=== PATIENT | male | born 1960 | race Caucasian/White ===

== ENCOUNTER 2023-03-05 11:58 | Inpatient (IN) | payer MEDICAID ==
[~2023-03-05] VITALS: Ht 185.4 cm; Wt 92.5 kg
[2023-03-05 13:31] LABS: Basophils # (auto) 0 10 ^3/uL (0-0.2); Basophils % (auto) 0.9 % (0.0-2.0); Eosinophils # (auto) 0.1 10 ^3/uL (0-0.8); Eosinophils % (auto) 3.6 % (0.0-7.0); Hematocrit 42.9 % (41.0-53.0); Hemoglobin 14.7 g/dL (13.5-17.5); Lymphocytes # (auto) 1.2 10 ^3/uL (0.4-5.4); Lymphocytes % (auto) 30.6 % (10.0-50.0); Mean Corpuscular Hgb Conc. 34.3 g/dL (32.0-36.0); Mean Corpuscular Volume 96.1 fL (80.0-100.0); Monocytes # (auto) 0.4 10 ^3/uL (0-1.3); Monocytes % (auto) 9.6 % (0.0-12.0); Neutrophils # (auto) 2.2 10 ^3/uL (1.6-8.6); Neutrophils % (auto) 55.3 % (37.0-80.0); Nucleated Red Blood Cells % 0.2 %; Red Blood Cells 4.47 10^6/uL (4.5-5.90); Red Cell Distribution Width 13.3 % (11.8-14.3); White Blood Cell 3.9 10^3/uL (4.4-10.8)
[2023-03-05 13:39] LABS: Alanine Aminotransferase 21 U/L (7-40); Albumin 4.2 g/dL (3.2-4.8); Alkaline Phosphatase 93 U/L (46-116); Anion Gap 7 (5-15); Aspartate Aminotransferase 20 U/L (13-40); BUN/Creatinine Ratio 15.9 (10.0-20.0); Bilirubin, Total 1.7 mg/dL (0.2-1.0); Blood Urea Nitrogen 14 mg/dL (9-23); Calcium 8.9 mg/dL (8.7-10.4); Carbon Dioxide 23 mmol/L (20-30); Chloride 107 mmol/L (98-107); Glucose 99 mg/dL (74-106); Lipase 39 U/L (12-53); Magnesium 2.1 mg/dL (1.6-2.6); Potassium 4.3 mmol/L (3.5-5.1); Sodium 137 mmol/L (136-145); Total Protein 6.4 g/dL (5.7-8.2)
[2023-03-05 13:49] LABS: INR 1.02 (0.9-1.15); Partial Thromboplastin Time 29.3 SEC (24.5-34.5); Prothrombin Time 10.7 sec (9.3-11.8)
[2023-03-05 19:32] LABS: Urine Bacteria NONE SEEN /hpf (None Seen); Urine Blood Negative /uL (Negative); Urine Clarity Clear (Clear); Urine Color Yellow (Yellow); Urine Mucus FEW (None Seen); Urine Protein, UAD Negative (Negative); Urine Specific Gravity 1.018 (1.001-1.035); Urine Urobilinogen Normal (Negative); Urine WBC 7 /hpf (0 - 3); Urine pH 5.5 (5.0-8.0)
[2023-03-05] MEDS ORDERED: ONDANSETRON HCL 4 MG/2 ML VIAL IV PRN (22:30)
[2023-03-05] MEDS ORDERED: DOCUSATE SOD 100 MG CAP PO PRN (22:30)
[2023-03-05] MEDS ORDERED: NITROGLYCERIN 0.4 MG SL TAB SL PRN (22:30)
[2023-03-05] MEDS ORDERED: ACETAMINOPHEN 325 MG TAB PO PRN (22:30)
[2023-03-05] MEDS ORDERED: MORPHINE SULFATE INJ 2 MG/ml SYRG IV PRN (22:30)
[2023-03-05] MEDS ORDERED: ASPI-325 PO (22:33)
[2023-03-05] MEDS ORDERED: ATOR-47 PO (22:33)
[2023-03-05] MEDS ORDERED: LORA-1123 PO (22:33)
[2023-03-05] MEDS ORDERED: METO-289 PO (22:33)
[2023-03-05] MEDS ORDERED: ACETAMINOPHEN 325 MG TAB PO ONE (22:45)
[2023-03-05] MEDS ORDERED: NITROGLYCERIN 2% OINT 1GM PKG TD ONE (22:45)
[2023-03-05] MEDS ORDERED: DOCUSATE SOD 100 MG CAP PO ONE (23:00)
[2023-03-05] MEDS ORDERED: LORazepam 0.5 MG TAB PO PRN (23:00)
[2023-03-05 23:45] VITALS: PULSE 60; RESP 14; O2SAT 98
[2023-03-06] VITALS (7 sets, daily range): BP systolic 100–137; BP diastolic 68–82; PULSE 54–81; RESP 14–19; TEMP 97.8–98.2; O2SAT 96–98
[2023-03-06] MEDS: ASPirin-EC 81 mg tab PO SCH (09:20)
[2023-03-06] MEDS: METOPROLOL SUCCINATE XL 50 MG TAB PO SCH (09:20)
[2023-03-06] MEDS: ENOXAPARIN SOD 40 MG/0.4 ML SYRINGE SC SCH (09:20)
[2023-03-06] MEDS: ATORVASTATIN 20 MG TAB PO SCH (09:21)
[2023-03-06] MEDS ORDERED: PANTOPRAZOLE 40 MG TAB PO ONE (17:45)
[2023-03-06] MEDS: HYDROcodone-ACET 5/325MG TAB PO PRN (20:38)
[2023-03-07] VITALS (12 sets, daily range): BP systolic 91–123; BP diastolic 57–84; PULSE 61–75; RESP 12–79; TEMP 97.6–98.4; O2SAT 95–99
[2023-03-07 07:27] LABS: Basophils # (auto) 0 10 ^3/uL (0-0.2); Basophils % (auto) 0.7 % (0.0-2.0); Eosinophils # (auto) 0.2 10 ^3/uL (0-0.8); Eosinophils % (auto) 4.9 % (0.0-7.0); Hematocrit 42.4 % (41.0-53.0); Hemoglobin 14.6 g/dL (13.5-17.5); Lymphocytes # (auto) 1.4 10 ^3/uL (0.4-5.4); Lymphocytes % (auto) 36.5 % (10.0-50.0); Mean Corpuscular Hemoglobin 33.4 pg (28.0-32.0); Mean Corpuscular Hgb Conc. 34.5 g/dL (32.0-36.0); Mean Corpuscular Volume 96.9 fL (80.0-100.0); Monocytes # (auto) 0.4 10 ^3/uL (0-1.3); Neutrophils # (auto) 1.8 10 ^3/uL (1.6-8.6); Neutrophils % (auto) 46.9 % (37.0-80.0); Nucleated Red Blood Cells % 0.2 %; Red Blood Cells 4.37 10^6/uL (4.5-5.90); Red Cell Distribution Width 13.5 % (11.8-14.3); White Blood Cell 3.9 10^3/uL (4.4-10.8)
[2023-03-07 07:30] LABS: Chloride 107 mmol/L (98-107); Potassium 4.5 mmol/L (3.5-5.1); Sodium 138 mmol/L (136-145)
[2023-03-07 07:31] LABS: Anion Gap 6 (5-15); Calcium 8.7 mg/dL (8.5-10.1); Carbon Dioxide 25 mmol/L (20-30)
[2023-03-07 07:36] LABS: BUN/Creatinine Ratio 14.6 (10.0-20.0); Blood Urea Nitrogen 12 mg/dL (9-23); Glucose 87 mg/dL (74-106)
[2023-03-07] MEDS ORDERED: HEPARIN SODIUM (PORCINE) 5000 UNITS/ML 1ML VIAL ONE (09:27)
[2023-03-07] MEDS ORDERED: MIDAZOLAM HCL 2MG/2ML 2ml VIAL (1mg/ml) ONE (09:27)
[2023-03-07] MEDS ORDERED: IOHEXOL 350 MG/ML 100ML IJ ONE (09:27)
[2023-03-07] MEDS ORDERED: LIDOCAINE 2%HCL (LOCAL ANESTH.) INJ 20ML MDV ONE (09:27)
[2023-03-07] MEDS ORDERED: VERAPAMIL 2.5MG/ML INJ 2ML VIAL IV ONE (09:27)
[2023-03-07] MEDS ORDERED: fentaNYL CITRATE 100 MCG/2 ML VL ONE (09:27)
[2023-03-07] MEDS ORDERED: ANGIOMAX 250 MG VIAL IV ONE (09:27)
[2023-03-07] MEDS ORDERED: SODIUM CHL 0.9% 0 ML ONE (09:46)
[2023-03-07] MEDS: ATORVASTATIN 20 MG TAB PO SCH (10:00)
[2023-03-07] MEDS: PANTOPRAZOLE 40 MG TAB PO SCH (10:00)
[2023-03-07] MEDS: ASPirin-EC 81 mg tab PO SCH (10:00)
[2023-03-07] MEDS: METOPROLOL SUCCINATE XL 50 MG TAB PO SCH ×2 (10:00→14:42)
[2023-03-07] MEDS: ENOXAPARIN SOD 40 MG/0.4 ML SYRINGE SC SCH (10:00)
[2023-03-07] MEDS: HYDROcodone-ACET 5/325MG TAB PO PRN ×2 (14:42→20:03)
[2023-03-08 05:00] VITALS: BP 104/66; PULSE 60; RESP 17; TEMP 97.2; O2SAT 96
[2023-03-08 07:29] LABS: Anion Gap 5 (5-15); Carbon Dioxide 27 mmol/L (20-30); Chloride 106 mmol/L (98-107); Potassium 4.8 mmol/L (3.5-5.1); Sodium 138 mmol/L (136-145)
[2023-03-08 07:31] LABS: Calcium 7.7 mg/dL (8.5-10.1)
[2023-03-08 07:35] LABS: BUN/Creatinine Ratio 17.3 (10.0-20.0); Blood Urea Nitrogen 14 mg/dL (9-23); Glucose 76 mg/dL (74-106)
[2023-03-08 07:44] LABS: Basophils # (auto) 0 10 ^3/uL (0-0.2); Basophils % (auto) 0.8 % (0.0-2.0); Eosinophils # (auto) 0.2 10 ^3/uL (0-0.8); Eosinophils % (auto) 5.6 % (0.0-7.0); Hematocrit 41.3 % (41.0-53.0); Hemoglobin 14.4 g/dL (13.5-17.5); Lymphocytes # (auto) 1.3 10 ^3/uL (0.4-5.4); Lymphocytes % (auto) 32.1 % (10.0-50.0); Mean Corpuscular Hemoglobin 33.6 pg (28.0-32.0); Mean Corpuscular Hgb Conc. 34.9 g/dL (32.0-36.0); Mean Corpuscular Volume 96.2 fL (80.0-100.0); Monocytes # (auto) 0.5 10 ^3/uL (0-1.3); Monocytes % (auto) 12.2 % (0.0-12.0); Neutrophils % (auto) 49.3 % (37.0-80.0); Nucleated Red Blood Cells % 0.1 %; Red Blood Cells 4.29 10^6/uL (4.5-5.90); Red Cell Distribution Width 13.5 % (11.8-14.3); White Blood Cell 4.1 10^3/uL (4.4-10.8)
[2023-03-08 08:00] VITALS: PULSE 57
[2023-03-08 09:00] VITALS: BP 112/72; PULSE 77; RESP 18; TEMP 98.3; O2SAT 96
[2023-03-08] MEDS: ASPirin-EC 81 mg tab PO SCH (09:03)
[2023-03-08] MEDS: METOPROLOL SUCCINATE XL 50 MG TAB PO SCH (09:04)
[2023-03-08] MEDS: PANTOPRAZOLE 40 MG TAB PO SCH (09:05)
[2023-03-08] MEDS: ATORVASTATIN 20 MG TAB PO SCH (09:06)
[2023-03-08] MEDS: ENOXAPARIN SOD 40 MG/0.4 ML SYRINGE SC SCH (09:06)
[2023-03-08] MEDS ORDERED: RANO500T3 PO (11:20)
[2023-03-08] MEDS ORDERED: METO-6 PO (11:20)
[2023-03-08 12:37] VITALS: BP 125/84; PULSE 66; RESP 18; TEMP 98.4; O2SAT 99
[2023-03-08 13:08] VITALS: BP 125/84; PULSE 66; RESP 18; TEMP 98.4; O2SAT 99
== END 2023-03-08 13:50 | disposition home or self-care (01) | DRG 191 ==
LOC: ER 11:58 → TELE-WESTW 22:28 → TELE 22:28 → TELE-WESTW 03-06 12:14
PROVIDERS: ADMIT Internal Medicine Geriatric Medicine; ATTEND Student in an Organized Health Care Education/Training Program
PROC: 4A023N7 Measurement of Cardiac Sampling and Pressure, Left Heart, Percutaneous Approach (ICD-10-PCS; principal; 2023-03-07)
PROC: B21FYZZ Fluoroscopy of Other Bypass Graft using Other Contrast (ICD-10-PCS; 2023-03-07)
PROC: B218YZZ Fluoroscopy of Left Internal Mammary Bypass Graft using Other Contrast (ICD-10-PCS; 2023-03-07)
PROC: B211YZZ Fluoroscopy of Multiple Coronary Arteries using Other Contrast (ICD-10-PCS; 2023-03-07)
DX: I20.0 Unstable angina (principal); E78.5 Hyperlipidemia, unspecified; N40.0 Benign prostatic hyperplasia without lower urinary tract symptoms; I10 Essential (primary) hypertension; G89.29 Other chronic pain; F41.9 Anxiety disorder, unspecified; K21.9 Gastro-esophageal reflux disease without esophagitis; Z95.1 Presence of aortocoronary bypass graft; Z90.49 Acquired absence of other specified parts of digestive tract; Z82.49 Family history of ischemic heart disease and other diseases of the circulatory system
CPT/HCPCS: 36415; 71045; 74176; 80048; 80053; 81001; 83605; 83690; 83735; 83880; 84484; 85025; 85610; 85730; 93005; 93306; 93459; 99152; C1894; G0378; J2250; J2405

== ENCOUNTER 2023-05-09 13:12 | Emergency (ER) | payer MEDICAID ==
[~2023-05-09] VITALS: Ht 180.3 cm; Wt 90.9 kg
[~2023-05-09 13:12] MED LIST: ASPI-325 PO; ATOR-47 PO; LORA-1123 PO; METO-289 PO; METO-6 PO; RANO500T3 PO
[2023-05-09] MEDS ORDERED: ASPirin 81 mg TAB PO ONE (14:00)
[2023-05-09 14:04] LABS: Alanine Aminotransferase 27 U/L (7-40); Albumin 3.9 g/dL (3.2-4.8); Alkaline Phosphatase 83 U/L (46-116); Anion Gap 9 (5-15); Aspartate Aminotransferase 21 U/L (13-40); BUN/Creatinine Ratio 10.3 (10.0-20.0); Bilirubin, Total 1.2 mg/dL (0.2-1.0); Blood Urea Nitrogen 9 mg/dL (9-23); Calcium 8.6 mg/dL (8.7-10.4); Carbon Dioxide 22 mmol/L (20-30); Chloride 105 mmol/L (98-107); Glucose 127 mg/dL (74-106); Potassium 3.6 mmol/L (3.5-5.1); Sodium 136 mmol/L (136-145); Total Protein 6.5 g/dL (5.7-8.2)
[2023-05-09 14:06] LABS: Hematocrit 40.8 % (41.0-53.0); Hemoglobin 14.1 g/dL (13.5-17.5); Mean Corpuscular Hemoglobin 32.9 pg (28.0-32.0); Mean Corpuscular Hgb Conc. 34.5 g/dL (32.0-36.0); Mean Corpuscular Volume 95.6 fL (80.0-100.0); Red Blood Cells 4.27 10^6/uL (4.5-5.90); Red Cell Distribution Width 12.9 % (11.8-14.3)
[2023-05-09 14:48] LABS: Band Neutrophils % (manual) 0; Basophils % (manual) 0 (0.0-2.0); Blast Cells 0; Metamyelocytes % 0; Myelocytes % 0; Promyelocytes % 0; Reactive Lymphocytes 0
[2023-05-09 15:01] LABS: INR 1.06 (0.9-1.15); Partial Thromboplastin Time 29.8 SEC (24.5-34.5); Prothrombin Time 11.3 sec (9.3-11.8)
[2023-05-09 16:22] LABS: Eosinophils % (manual) 4 (0-7); Lymphocytes % (manual) 20 (10.0-50.0); Monocytes % (manual) 11 (0-12)
[2023-05-09 16:23] LABS: Platelet Estimate Adequate
[2023-05-09 16:44] VITALS: BP 113/75; PULSE 81; RESP 18; TEMP 98; O2SAT 98
[2023-05-09] MEDS ORDERED: KETOROLAC TROMETH 30 MG/ML 1ML VIAL IM ONE (16:45)
== END 2023-05-09 16:58 | disposition home or self-care (01) ==
LOC: ER 13:12
DX: R07.89 Other chest pain (principal); R06.02 Shortness of breath; E78.5 Hyperlipidemia, unspecified; I10 Essential (primary) hypertension
CPT/HCPCS: 36415; 71045; 80053; 83735; 83880; 84484; 85007; 85027; 85610; 85730; 93005; 96372; 99285; J1885

== ENCOUNTER 2024-10-06 11:44 | Emergency (ER) | payer OTHER ==
[~2024-10-06] VITALS: Ht 180.3 cm; Wt 90.0 kg
[2024-10-06 12:23] VITALS: BP 140/77; PULSE 56; RESP 16; TEMP 99; O2SAT 98
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
[2024-10-06] MEDS: KETOROLAC TROMETH 60MG/2ML VIAL IM ONE (12:42)
[2024-10-06] MEDS: methylPREDNISolone SOD SUCC 125 MG/2 ML VL IM ONE (12:43)
[2024-10-06] MEDS ORDERED: ACET500T58 PO (12:54)
[2024-10-06] MEDS ORDERED: METH-1181 PO (12:54)
== END 2024-10-06 12:59 | disposition home or self-care (01) ==
LOC: ER 11:44
DX: M54.50 Low back pain, unspecified (principal); E78.5 Hyperlipidemia, unspecified; I10 Essential (primary) hypertension; I25.2 Old myocardial infarction; Z79.82 Long term (current) use of aspirin; Z95.1 Presence of aortocoronary bypass graft; Z90.49 Acquired absence of other specified parts of digestive tract; Z79.899 Other long term (current) drug therapy
CPT/HCPCS: 96372; 99284; J1885; J2919